=== PATIENT | female | born 1970 | race Caucasian/White ===

== ENCOUNTER 2017-03-05 12:08 | Emergency (ER) | payer OTHER ==
--- NOTE | 2017-03-05 12:41 | ED.PDOC ---
History of Present Illness - General Chief Complaint: Problem Stated Complaint: vaginal discharge Time Seen by Provider: 03/05/17 12:29 Source: patient Exam Limitations: no limitations - History of Present Illness Initial Comments: Manisha Parks 46 y/o female stated that she had notice dark looking discharge on her underwear yesterday could not determine the source denies melena ,has vaginal discharge,no incontinence of stool,no hematuria Had been taking antacids for ge reflux and gas Timing/Duration: yesterday Quality: mild Onset Location: unknown Radiation: none Activites at Onset: none Sexual intercourse history: single partner, other - daily Improving Factors: nothing Worsening Factors: nothing Associated Symptoms: denies symptoms Allergies/Adverse Reactions: Allergies Penicillin G Allergy (Verified 03/05/17 12:47) Unknown Diphenhydramine [From Benadryl] Adverse Reaction (Verified 03/05/17 12:47) Other Makes her "head swim" Home Medications: Ambulatory Orders Acetaminophen [Arthritis Pain] 650 mg PO TID PRN 03/05/17 Calcium Carbonate (Antacid) [Tums] 2 ea PO QID PRN 03/05/17 Review of Systems - Review of Systems Constitutional: States: no symptoms reported EENTM: States: no symptoms reported Respiratory: States: no symptoms reported Cardiology: States: no symptoms reported Gastrointestinal/Abdominal: States: no symptoms reported Genitourinary: States: see HPI Musculoskeletal: States: no symptoms reported Skin: States: no symptoms reported Neurological: States: no symptoms reported Endocrine: States: no symptoms reported Past Medical History (General) - Patient Medical History Hx Seizures: No Hx Stroke: No Hx Dementia: No Hx Asthma: Yes - mild use inhaler prn Hx of COPD: No Hx Cardiac Disorders: No Hx Congestive Heart Failure: No Hx Pacemaker: No Hx Hypertension: No Hx Thyroid Disease: No Hx Diabetes: No Hx Gastroesophageal Reflux: Yes Hx Renal Disease: No Hx Cancer: No Hx of HIV: No Hx Hepatitis C: No Hx MRSA: No Hx Other PMH: Yes - migraines Surgical History: other - vaginal deliveries with episioraphy - Vaccination History Hx Tetanus, Diphtheria Vaccination: No Hx Influenza Vaccination: No Hx Pneumococcal Vaccination: No - Social History Hx Tobacco Use: Yes Hx Chewing Tobacco Use: Yes Hx Alcohol Use: Yes - occ Hx Substance Use: No Hx Substance Use Treatment: No Hx Depression: Yes Hx Physical Abuse: No Hx Emotional Abuse: No Hx Suspected Abuse: No - Activities of Daily Living Patient Lives Alone: No - famil - Female History Hx Last Menstrual Period: 02/14/14 Patient : No Family Medical History - Family History Son Living Status: Still Living Hx Family Hypertension: Yes - parents Hx Family Diabetes: Yes - parents Hx Family Cancer: Yes - breast-mom Hx Family;Other: mental disability - PTSD with Pshychosis, depression Physical Exam - Physical Exam General Appearance: Alert, No apparent distress Eyes, Ears, Nose, Throat Exam: PERRL/EOMI, normal ENT inspection Neck: non-tender, full range of motion, supple Cardiovascular/Respiratory: regular rate, rhythm, no M/R/G, normal peripheral pulses, normal breath sounds Gastrointestinal/Abdominal: normal bowel sounds, non tender, soft, tenderness - to deep palpation llquadrant, other - obese Rectal Exam: normal exam, normal rectal tone Pelvic Exam: external exam normal, speculum exam normal, no cerv. motion tender , no masses Back Exam: normal inspection, no CVA tenderness, no vertebral tenderness Extremity: non-tender, normal inspection, no pedal edema, no calf tenderness Neurologic: alert, normal mood/affect, oriented x 3 Skin Exam: normal color, warm/dry Lymphatic: no adenopathy Progress - Progress Progress: 03/05/17 13:17 Vital Signs - 8 hr 03/05/17 12:15 Temperature 98.3 F Pulse Rate [ 94 H Left Radial] Respiratory 20 Rate Blood Pressure 130/89 [Left Arm] O2 Sat by Pulse 94 L Oximetry - Results/Orders Results/Orders: 03/05/17 12:47 Pelvic Exam Assist ONCE 03/05/17 13:15 GC CHLAMYDIA RNA,TMA Routine Laboratory Results - last 24 hr 03/05/17 03/05/17 13:15 13:45 Urine Color Yellow Urine Appearance Clear Urine pH 5.5 Ur Specific Kaplan 1.025 Urine Protein Negative Urine Glucose (UA) Negative Urine Ketones Negative Urine Blood Trace-intact H Urine Nitrite Negative Urine Bilirubin Negative Urine Urobilinogen 0.2 Ur Leukocyte Esterase Negative Urine RBC 1-3 Urine WBC 0 Ur Epithelial Cells 1-3 Urine Bacteria 0 Stool Occult Blood Negative wet prep-negative: Gc/chlamydia-negative Departure - Departure Clinical Impression: Vaginal discharge Time of Disposition: 14:10 Disposition: Discharge to Home or Self Care Condition: Good Instructions: DI for Vaginal Discharge Referrals: Brandy Kerns NP [Primary Care Provider] - 1-2 Weeks Home Medications: Ambulatory Orders Acetaminophen [Arthritis Pain] 650 mg PO TID PRN 03/05/17 Calcium Carbonate (Antacid) [Tums] 2 ea PO QID PRN 03/05/17 Additional Instructions: FOLLOW UP WITH [facility]ICER CALL FOR APPOINTMENT or/ with your primary md.
[2017-03-05 12:47] VITALS: TEMP 98.3
[2017-03-05] MEDS ORDERED: AZITHROMYCIN 250 MG TAB PO ONE (13:39)
[2017-03-05] MEDS ORDERED: metroNIDAZOLE 500 MG TAB PO ONE (13:39)
[2017-03-05 14:36] VITALS: BP 126/83; O2SAT 97
== END 2017-03-05 14:30 | disposition home or self-care (01) ==
LOC: ER 12:08
DX: N89.8 Other specified noninflammatory disorders of vagina (principal); J45.909 Unspecified asthma, uncomplicated; K21.9 Gastro-esophageal reflux disease without esophagitis; Z88.0 Allergy status to penicillin; Z88.8 Allergy status to other drugs, medicaments and biological substances; Z87.891 Personal history of nicotine dependence
CPT/HCPCS: 81001; 82270; 87210; 87491; 87591; J0696; Q0144

== ENCOUNTER → 2017-03-23 | Outpatient (CLI) | payer OTHER ==
--- NOTE | 2017-03-24 08:29 | RAD ---
EXAM DESCRIPTION: KUB CLINICAL HISTORY: 46 years Female, UNSPECIFIED ABDOMINAL PAIN COMPARISON: None. FINDINGS: There is a moderate amount of colonic stool and gas. The bowel gas pattern is nonobstructive. No suspicious intra-abdominal calcification or mass. There are mild degenerative changes in the thoracal lumbar spine at several levels including slight levoscoliosis. IMPRESSION: Moderate amount of colonic stool and gas, otherwise unremarkable exam. Electronically signed by: Jose Thomas MD 03/24/2017 8:28 AM CDT Workstation: [facility]
== END | disposition home or self-care (01) ==
LOC: YCFC.O 09:20
PROVIDERS: ATTEND Nurse Practitioner Family
DX: Z12.31 Encounter for screening mammogram for malignant neoplasm of breast (principal); R10.9 Unspecified abdominal pain; E66.9 Obesity, unspecified; Z00.00 Encounter for general adult medical examination without abnormal findings
CPT/HCPCS: 36415; 74000; 80053; 80061; 85025; G0202

== ENCOUNTER 2017-08-20 13:32 | Emergency (ER) | payer OTHER ==
[2017-08-20 14:09] VITALS: TEMP 98.7
--- NOTE | 2017-08-20 14:13 | ED.PDOC ---
History of Present Illness - General Chief Complaint: Skin/Abrasion/Tear Stated Complaint: itchy knot on posterior neck Time Seen by Provider: 08/20/17 14:10 Source: patient Exam Limitations: no limitations - History of Present Illness Initial Comments: he patient is a 46-year-old female presenting to the emergency room secondary to a lesion that's been present to her left posterior shoulder for last month. Her maps been some drainage initially. No blistering. She reports at this point it is mainly itchy. He does appear to be a healing abscess There does not appear to be anything to drain at this point. it is approximately 1.4 cm in diameter with a old central head. Timing/Duration: other - one month Severity: mild Improving Factors: nothing Worsening Factors: nothing Associated Symptoms: denies symptoms Allergies/Adverse Reactions: Allergies Codeine Allergy (Verified 08/20/17 14:09) Penicillin G Allergy (Verified 03/05/17 12:47) Unknown Diphenhydramine [From Benadryl] Adverse Reaction (Verified 03/05/17 12:47) Other Makes her "head swim" Home Medications: Ambulatory Orders Acetaminophen [Arthritis Pain] 650 mg PO TID PRN 03/05/17 Calcium Carbonate (Antacid) [Tums] 2 ea PO QID PRN 03/05/17 Sulfa/Trimeth 800/160 (Ds) Tab [Bactrim DS Tab] 1 ea PO BID #10 tab 08/20/17 Review of Systems - Review of Systems Constitutional: States: no symptoms reported EENTM: States: no symptoms reported Respiratory: States: no symptoms reported Cardiology: States: no symptoms reported Gastrointestinal/Abdominal: States: no symptoms reported Genitourinary: States: no symptoms reported Musculoskeletal: States: no symptoms reported Skin: States: see HPI Neurological: States: no symptoms reported Endocrine: States: no symptoms reported All other Systems: No Change from Baseline Past Medical History (General) - Patient Medical History Hx Seizures: No Hx Stroke: No Hx Dementia: No Hx Asthma: Yes - mild use inhaler prn Hx of COPD: No Hx Cardiac Disorders: No Hx Congestive Heart Failure: No Hx Pacemaker: No Hx Hypertension: No Hx Thyroid Disease: No Hx Diabetes: No Hx Gastroesophageal Reflux: Yes Hx Renal Disease: No Hx Cancer: No Hx of HIV: No Hx Hepatitis C: No Hx MRSA: No - Vaccination History Hx Tetanus, Diphtheria Vaccination: No Hx Influenza Vaccination: No Hx Pneumococcal Vaccination: No - Social History Hx Tobacco Use: Yes Hx Chewing Tobacco Use: Yes Hx Alcohol Use: Yes - occ Hx Substance Use: No Hx Substance Use Treatment: No Hx Depression: Yes Hx Physical Abuse: No Hx Emotional Abuse: No Hx Suspected Abuse: No - Female History Hx Last Menstrual Period: 02/14/14 Patient : No Family Medical History - Family History Son Living Status: Still Living Hx Family Hypertension: Yes - parents Hx Family Diabetes: Yes - parents Hx Family Cancer: Yes - breast-mom Hx Family;Other: mental disability - PTSD with Pshychosis, depression Physical Exam - Physical Exam General Appearance: Alert, Comfortable, No apparent distress Eye Exam: bilateral normal Ears, Nose, Throat: hearing grossly normal Neck: full range of motion, supple, normal inspection Respiratory: no respiratory distress, no accessory muscle use Cardiovascular/Chest: normal peripheral pulses, no edema Peripheral Pulses: radial,right: 2+, radial,left: 2+ Gastrointestinal/Abdominal: other - obese Rectal Exam: deferred Back Exam: normal inspection - ith the exception of the skkin as above Extremity: normal inspection, no pedal edema, normal capillary refill Neurologic: publications editor II-XII nml as tested, alert, normal mood/affect, oriented x 3 Skin Exam: normal color - with the exception as per history of present illness Comments: Vital Signs - 24 hr 08/20/17 14:06 Temperature 98.7 F Pulse Rate [ 86 left brachial] Respiratory 20 Rate Blood Pressure 132/95 [left brachial] O2 Sat by Pulse 98 Oximetry Progress - Progress Progress: 08/20/17 14:13 the patient is a 46-year-old female presenting to the emergency room with what appears to be a 1-month-old small skin abscess to her posterior left shoulder, that has not completely healed. It is causing her some pruritus as well. The patient will be placed on Bactrim DS twice daily for 5 days. She needs to take the antibiotics with food prevent stomach irritation. The patient can also diamond picker some hydrocortisone 10 and apply topically over the surface for the next 1 week approximately 3 times daily. ER warnings were given for any significant worsening. She does need to make sure that the wound heals up completely over the next month. Departure - Departure Clinical Impression: Abscess of skin Qualifiers: Site of cutaneous abscess: trunk Site of cutaneous abscess of trunk: back Qualified Code(s): L02.212 - Cutaneous abscess of back [any part, except buttock ] Disposition: Discharge to Home or Self Care Condition: Good Departure Forms: ED Discharge - Pt. Copy, Patient Portal Self Enrollment Instructions: DI for Wound Infection Diet: diabetic diet Activity: increase activity as tolerated Referrals: Gretta Mckenzie, [facility] [Primary Care Provider] - 1-2 Weeks Prescriptions: Sulfa/Trimeth 800/160 (Ds) Tab [Bactrim DS Tab] 1 ea PO BID #10 tab Home Medications: Ambulatory Orders Acetaminophen [Arthritis Pain] 650 mg PO TID PRN 03/05/17 Calcium Carbonate (Antacid) [Tums] 2 ea PO QID PRN 03/05/17 Sulfa/Trimeth 800/160 (Ds) Tab [Bactrim DS Tab] 1 ea PO BID #10 tab 08/20/17 Additional Instructions: the patient is a 46-year-old female presenting to the emergency room with what appears to be a 1-month-old small skin abscess to her posterior left shoulder, that has not completely healed. It is causing her some pruritus as well. The patient will be placed on Bactrim DS twice daily for 5 days. She needs to take the antibiotics with food prevent stomach irritation. The patient can also diamond picker some hydrocortisone 10 and apply topically over the surface for the next 1 week approximately 3 times daily. ER warnings were given for any significant worsening. She does need to make sure that the wound heals up completely over the next month.
[2017-08-20 14:40] VITALS: BP 134/94; O2SAT 96
== END 2017-08-20 14:40 | disposition home or self-care (01) ==
LOC: ER 13:32
DX: L02.414 Cutaneous abscess of left upper limb (principal); J45.909 Unspecified asthma, uncomplicated; K21.9 Gastro-esophageal reflux disease without esophagitis; Z79.899 Other long term (current) drug therapy; Z88.0 Allergy status to penicillin; Z88.6 Allergy status to analgesic agent

== ENCOUNTER 2017-09-20 12:20 | Emergency (ER) | payer OTHER ==
[2017-09-20 13:31] VITALS: BP 111/75; TEMP 99.1; O2SAT 93
[2017-09-20] MEDS ORDERED: DEXAMETHASONE INJ 10 MG/ML VIAL IM ONE (13:52)
--- NOTE | 2017-09-20 13:56 | ED.PDOC ---
History of Present Illness - General Chief Complaint: Skin/Abrasion/Tear Stated Complaint: Rash Time Seen by Provider: 09/20/17 13:52 Source: patient Exam Limitations: no limitations - History of Present Illness Initial Comments: THIS PATIENT IS HERE FOR A RASH ON THE TRUNK THAT STARTED 6 DAYS AGO. IT IS PURITIC AND DENIES ANY FEVER. Timing/Duration: week - ONE WEEK Severity: moderate Location: torso Improving Factors: nothing Worsening Factors: nothing Associated Symptoms: denies symptoms Allergies/Adverse Reactions: Allergies Codeine Allergy (Verified 08/20/17 14:09) Penicillin G Allergy (Verified 03/05/17 12:47) Unknown Diphenhydramine [From Benadryl] Adverse Reaction (Verified 03/05/17 12:47) Other Makes her "head swim" Home Medications: Ambulatory Orders Acetaminophen [Arthritis Pain] 650 mg PO TID PRN 03/05/17 Calcium Carbonate (Antacid) [Tums] 2 ea PO QID PRN 03/05/17 Sulfa/Trimeth 800/160 (Ds) Tab [Bactrim DS Tab] 1 ea PO BID #10 tab 08/20/17 Triamcinolone 0.5% Cream [Kenalog 0.5% Cream] 60 gm TOP BID #1 tube 09/20/17 predniSONE 20 mg PO DAILY #7 tab 09/20/17 Review of Systems - Review of Systems Constitutional: Denies: fever EENTM: States: no symptoms reported Respiratory: States: no symptoms reported Cardiology: States: no symptoms reported Gastrointestinal/Abdominal: States: no symptoms reported Genitourinary: States: no symptoms reported Musculoskeletal: States: no symptoms reported Skin: States: dryness, rash - MACULAR RASH TO THE ABDOMEN AND CHEST AREA AND THE BACK. SCRATCH HERRERA ARE NOTED Neurological: States: no symptoms reported Endocrine: States: no symptoms reported Hematologic/Lymphatic: States: no symptoms reported Past Medical History (General) - Patient Medical History Hx Seizures: No Hx Stroke: No Hx Dementia: No Hx Asthma: Yes - mild use inhaler prn Hx of COPD: No Hx Cardiac Disorders: No Hx Congestive Heart Failure: No Hx Pacemaker: No Hx Hypertension: No Hx Thyroid Disease: No Hx Diabetes: No Hx Gastroesophageal Reflux: Yes Hx Renal Disease: No Hx Cancer: No Hx of HIV: No Hx Hepatitis C: No Hx MRSA: No - Vaccination History Hx Tetanus, Diphtheria Vaccination: No Hx Influenza Vaccination: No Hx Pneumococcal Vaccination: No - Social History Hx Tobacco Use: Yes Hx Chewing Tobacco Use: Yes Hx Alcohol Use: Yes - occ Hx Substance Use: No Hx Substance Use Treatment: No Hx Depression: Yes Hx Physical Abuse: No Hx Emotional Abuse: No Hx Suspected Abuse: No - Female History Hx Last Menstrual Period: 02/14/14 Patient : No Family Medical History - Family History Son Living Status: Still Living Hx Family Hypertension: Yes - parents Hx Family Diabetes: Yes - parents Hx Family Cancer: Yes - breast-mom Hx Family;Other: mental disability - PTSD with Pshychosis, depression Physical Exam - Physical Exam General Appearance: Alert, Unkempt Eyes, Ears, Nose, Throat Exam: PERRL/EOMI, normal ENT inspection, TMs normal, pharynx normal Neck: non-tender, full range of motion, supple, normal inspection Cardiovascular/Chest: normal peripheral pulses, regular rate, rhythm, no edema, no gallop, no JVD Respiratory: chest non-tender, lungs clear, normal breath sounds, no respiratory distress, no accessory muscle use Gastrointestinal/Abdominal: normal bowel sounds, non tender, soft, no organomegaly, no pulsatile mass Back Exam: normal inspection Extremity: normal range of motion, non-tender, normal inspection, no pedal edema Neurologic: normal mood/affect, oriented x 3, abnormal cerebellar tests, abnormal plastics nurse II-XII Skin Exam: warm/dry, other - MACULAR RASH TO THE TORSO, SCRATCH HERRERA NOTED. Lymphatic: no adenopathy Departure - Departure Clinical Impression: Dermatitis Time of Disposition: 13:58 Disposition: Discharge to Home or Self Care Condition: Good Departure Forms: ED Discharge - Pt. Copy, Patient Portal Self Enrollment Instructions: DI for Atopic Dermatitis - Adult Activity: increase activity as tolerated Referrals: Gretta Mckenzie NP [Primary Care Provider] - 1-2 Weeks Prescriptions: predniSONE 20 mg PO DAILY #7 tab Triamcinolone 0.5% Cream [Kenalog 0.5% Cream] 60 gm TOP BID #1 tube Home Medications: Ambulatory Orders Acetaminophen [Arthritis Pain] 650 mg PO TID PRN 03/05/17 Calcium Carbonate (Antacid) [Tums] 2 ea PO QID PRN 03/05/17 Sulfa/Trimeth 800/160 (Ds) Tab [Bactrim DS Tab] 1 ea PO BID #10 tab 08/20/17 Triamcinolone 0.5% Cream [Kenalog 0.5% Cream] 60 gm TOP BID #1 tube 09/20/17 predniSONE 20 mg PO DAILY #7 tab 09/20/17
== END 2017-09-20 14:42 | disposition home or self-care (01) ==
LOC: ER 12:20
DX: L30.9 Dermatitis, unspecified (principal); Z87.891 Personal history of nicotine dependence

== ENCOUNTER 2018-05-07 12:15 | Emergency (ER) | payer OTHER ==
--- NOTE | 2018-05-07 13:24 | ED.PDOC ---
History of Present Illness - General Chief Complaint: Problem Stated Complaint: vaginal burning Time Seen by Provider: 05/07/18 12:48 Source: patient Exam Limitations: no limitations - History of Present Illness Initial Comments: Manisha Parks 47 y/o female stated that she had burning pain on her vaginal area for the last 4 days.Denies history of STI,single partner sexually active,denies history of herpes genitalis but stated had yeast infection in the past. Timing/Duration: other - see hpi Quality: burning Radiation: other - see hpi Activites at Onset: none Prior abdominal problems: none Sexual intercourse history: single partner Improving Factors: nothing Worsening Factors: nothing Associated Symptoms: denies symptoms Allergies/Adverse Reactions: Allergies Codeine Allergy (Verified 08/20/17 14:09) Penicillin G Allergy (Verified 03/05/17 12:47) Unknown Diphenhydramine [From Benadryl] Adverse Reaction (Verified 03/05/17 12:47) Other Makes her "head swim" Home Medications: Ambulatory Orders Acetaminophen [Arthritis Pain] 650 mg PO TID PRN 03/05/17 Calcium Carbonate (Antacid) [Tums] 2 ea PO QID PRN 03/05/17 Sulfa/Trimeth 800/160 (Ds) Tab [Bactrim DS Tab] 1 ea PO BID #10 tab 08/20/17 Triamcinolone 0.5% Cream [Kenalog 0.5% Cream] 60 gm TOP BID #1 tube 09/20/17 predniSONE 20 mg PO DAILY #7 tab 09/20/17 Benzocaine-Menthol [Dermoplast 20-0.5 %] 1 aer EX Q4HR #1 aer 05/07/18 Benzocaine-Resorcinol Vaginal [Vagisil Maximum Strength] 1 cre VA BEDTIME 7 Days #1 cre 05/07/18 Fluconazole [Diflucan Tab] 150 mg PO ONCE #1 tab 05/07/18 metFORMIN HCL [Glucophage] 500 mg PO BID #30 tab 05/07/18 Review of Systems - Review of Systems Constitutional: States: no symptoms reported EENTM: States: no symptoms reported Respiratory: States: no symptoms reported Cardiology: States: no symptoms reported Gastrointestinal/Abdominal: States: no symptoms reported Genitourinary: States: see HPI Musculoskeletal: States: no symptoms reported Skin: States: no symptoms reported Past Medical History (General) - Patient Medical History Hx Seizures: No Hx Stroke: No Hx Dementia: No Hx Asthma: Yes - mild use inhaler prn Hx of COPD: No Hx Cardiac Disorders: No Hx Congestive Heart Failure: No Hx Pacemaker: No Hx Hypertension: No Hx Thyroid Disease: No Hx Diabetes: No Hx Gastroesophageal Reflux: Yes Hx Renal Disease: No Hx Cancer: No Hx of HIV: No Hx Hepatitis C: No Hx MRSA: No Surgical History: no surgical history - Vaccination History Hx Tetanus, Diphtheria Vaccination: No Hx Influenza Vaccination: No Hx Pneumococcal Vaccination: No - Social History Hx Tobacco Use: Yes Hx Chewing Tobacco Use: Yes Hx Alcohol Use: Yes - occ Hx Substance Use: No Hx Substance Use Treatment: No Hx Depression: Yes Hx Physical Abuse: No Hx Emotional Abuse: No Hx Suspected Abuse: No - Activities of Daily Living Patient Lives Alone: No - Female History Hx Last Menstrual Period: 02/14/14 Patient : No Family Medical History - Family History Son Living Status: Still Living Hx Family Hypertension: Yes - parents Hx Family Diabetes: Yes - parents Hx Family Cancer: Yes - breast-mom Hx Family;Other: mental disability - PTSD with Pshychosis, depression Physical Exam - Physical Exam General Appearance: Alert, Comfortable, No apparent distress Eyes, Ears, Nose, Throat Exam: normal ENT inspection, pharynx normal Neck: non-tender, full range of motion, supple, normal inspection Cardiovascular/Respiratory: regular rate, rhythm, no M/R/G, normal peripheral pulses, normal breath sounds Gastrointestinal/Abdominal: normal bowel sounds, non tender, soft, no organomegaly Pelvic Exam: external exam normal, no cerv. motion tender, discharge - thick white, lesions - none, ulcers - none Back Exam: no CVA tenderness, no vertebral tenderness Extremity: no pedal edema, no calf tenderness Neurologic: alert, normal mood/affect, oriented x 3 Skin Exam: normal color, warm/dry Progress - Progress Progress: 05/07/18 13:27 Vital Signs 05/07/18 05/07/18 12:22 13:24 Temperature 100.1 F H 99.6 F Pulse Rate [ 99 H 84 left brachial] Respiratory 16 20 Rate Blood Pressure 142/77 126/76 [left brachial] O2 Sat by Pulse 96 96 Oximetry - Results/Orders Results/Orders: Laboratory Results - last 24 hr 05/07/18 05/07/18 12:27 13:58 POC Glucose 264 H Urine Color Yellow Urine Appearance Cloudy Urine pH 5.0 Ur Specific Heath >= 1.030 Urine Protein Trace Urine Glucose (UA) 500 H Urine Ketones Trace Urine Blood Negative Urine Nitrite Negative Urine Bilirubin Negative Urine Urobilinogen 0.2 Ur Leukocyte Esterase Negative Urine RBC 0 Urine WBC 0 Ur Epithelial Cells 5-10 Amorphous Sediment 4+ Urine Bacteria 0 [id number] Departure - Departure Clinical Impression: New onset type 2 diabetes mellitus Vaginitis Qualifiers: Chronicity: subacute Qualified Code(s): N76.1 - Subacute and chronic vaginitis Time of Disposition: 14:21 Disposition: Discharge to Home or Self Care Condition: Fair Departure Forms: ED Discharge - Pt. Copy, Patient Portal Self Enrollment Instructions: Type 2 Diabetes, Metabolic Syndrome, Diabetes Diet , Treatment for Type 2 Diabetes, Vaginitis Referrals: Brandy Kerns NP [Primary Care Provider] - 1-2 Weeks Prescriptions: Benzocaine-Menthol [Dermoplast 20-0.5 %] 1 aer EX Q4HR #1 aer Benzocaine-Resorcinol Vaginal [Vagisil Maximum Strength] 1 cre VA BEDTIME 7 Days #1 cre Fluconazole [Diflucan Tab] 150 mg PO ONCE #1 tab metFORMIN HCL [Glucophage] 500 mg PO BID #30 tab Home Medications: Ambulatory Orders Acetaminophen [Arthritis Pain] 650 mg PO TID PRN 03/05/17 Calcium Carbonate (Antacid) [Tums] 2 ea PO QID PRN 03/05/17 Sulfa/Trimeth 800/160 (Ds) Tab [Bactrim DS Tab] 1 ea PO BID #10 tab 08/20/17 Triamcinolone 0.5% Cream [Kenalog 0.5% Cream] 60 gm TOP BID #1 tube 09/20/17 predniSONE 20 mg PO DAILY #7 tab 09/20/17 Benzocaine-Menthol [Dermoplast 20-0.5 %] 1 aer EX Q4HR #1 aer 05/07/18 Benzocaine-Resorcinol Vaginal [Vagisil Maximum Strength] 1 cre VA BEDTIME 7 Days #1 cre 05/07/18 Fluconazole [Diflucan Tab] 150 mg PO ONCE #1 tab 05/07/18 metFORMIN HCL [Glucophage] 500 mg PO BID #30 tab 05/07/18 Additional Instructions: Follow up with primary Md 08 May 2018
[2018-05-07 13:26] VITALS: TEMP 99.6
[2018-05-07 15:07] VITALS: BP 153/90; O2SAT 95
== END 2018-05-07 15:29 | disposition home or self-care (01) ==
LOC: ER 12:15
DX: N76.1 Subacute and chronic vaginitis (principal); E11.9 Type 2 diabetes mellitus without complications; F32.9 Major depressive disorder, single episode, unspecified; K21.9 Gastro-esophageal reflux disease without esophagitis; J45.909 Unspecified asthma, uncomplicated; Z79.899 Other long term (current) drug therapy; Z88.0 Allergy status to penicillin; Z88.5 Allergy status to narcotic agent; Z88.8 Allergy status to other drugs, medicaments and biological substances; Z87.891 Personal history of nicotine dependence